=== PATIENT | male | born 2000 | race Caucasian/White ===

== ENCOUNTER 2020-12-21 22:13 | Emergency (ER) | payer OTHER, SELFPAY ==
[2020-12-21 22:20] VITALS: BP 129/83; PULSE 115; RESP 18; O2SAT 98
--- NOTE | 2020-12-21 22:51 | PC.NURSE ---
Security at bedside. Pt heard yelling/screaming in room and slamming things. Pt extremely rude to staff and inappropriate with care. Charge Nurse notified of situation. Security remains outside of room at this time.
--- NOTE | 2020-12-21 22:57 | PC.NURSE ---
PA at bedside for primary eval.
--- NOTE | 2020-12-21 23:00 | ED.EAR ---
HPI - Ear Problem General Chief complaint: Dental/Oral Stated complaint: dental pain Time Seen by Provider: 12/21/20 22:47 Source: patient Mode of arrival: ambulatory Limitations: no limitations History of Present Illness HPI Narrative: 20 y/o male presenting with left ear pain and left upper jaw pain that started today. He denies trauma. He denies hearing loss, tinnitus, or drainage. He denies dental pain, sore throat, difficulty eating or drinking. He is holding his left face in pain. Security to the room for patient throwing things and yelling at staff. Took redirection in order to complete interview and examination. MD Complaint: ear pain Location: left ear Duration: constant Severity: severe Relieving factors: nothing Exacerbating factors: palpation Discharge from ear: no Treatment prior to arrival: none Related Data Previous Rx's Medication Instructions Recorded amoxicillin 875 mg-potassium 1 tab PO BID #20 tab 12/21/20 clavulanate 125 mg tablet (Augmentin) ibuprofen 600 mg tablet 600 mg PO Q8H PRN #14 tab 12/21/20 Allergies Allergy/AdvReac Type Severity Reaction Status Date / Time No Known Allergies Allergy Verified 12/21/20 22:24 Review of Systems Constitutional: Constitutional: Denies chills, Denies fever(s) and Denies headache(s) Eyes: Eyes: Reports no additional eye complaints ENT: Reports Normal hearing present, Denies vertigo, Denies ear discharge, Reports otalgia, Denies headache(s), Denies mouth pain, Denies nasal congestion, Denies neck pain, Denies nose pain, Denies odynophagia, Denies sinus pressure, Denies sore throat, Denies throat swelling and Denies tongue swelling Cardiovascular: Cardiovascular: Denies chest pain Respiratory: Respiratory: Denies cough Gastrointestinal: Gastrointestinal: Denies odynophagia Musculoskeletal: Musculoskeletal: Denies neck pain Integumentary/Breasts: Skin/Breast: Denies rash Neurologic: Reports Normal hearing present, Denies vertigo and Denies headache(s) Allergic/Immunologic: Allergic/Immunologic: Denies throat swelling and Denies tongue swelling PMF Past Medical History Medical History (Updated 12/21/20 @ 23:01 by DIANE Robles) No known health problems Social History Social History Advance Directives: No Advance Directives Information Provided: Yes Physical Exam Vital Signs: Vital Signs: Last Vital Signs Pulse 115 H 12/21/20 22:20 Resp 18 12/21/20 22:20 BP 129/83 12/21/20 22:20 Pulse Ox 98 12/21/20 22:20 Body Mass Index 20.0 Appearance: Alert, agitated and uncooperative. Eyes: Pupils equal, round and reactive to light. ENT: Pharynx normal. No dental tenderness or gingival tenderness or fluctunace. Angle of the left mandible normal to palpation, no trismus. No mastoid tenderness or swelling. Left EAC normal, left TM with erythema, bulging and small area of dried blood on the TM without appreciable perforation. Neck: Normal inspection. Neck supple. Respiratory: No respiratory distress. Skin: Skin warm and dry. Normal skin color. Normal skin turgor. No rashes. Extremities: Atraumatic x4. Neuro: Non-focal, agitated, cursing and rude. Steady gait. Neuro: Cranial nerves: Yes Normal hearing present Course Course Course Narrative: 20 y/o male presenting with acute onset of left ear pain radiating to left upper mandible. Normal ROM without clicking or trismus. No evidence of trauma. Exam is consistent with AOM, will treat as such. Stable for discharge. Critical Care Time Critical Care Time Critical Care Time: No Discharge Plan Discharge Clinical Impression: Otitis media Qualifiers: Otitis media type: suppurative Chronicity: acute Laterality: left Recurrence: non-recurrent Spontaneous tympanic membrane rupture: without spontaneous rupture Qualified Code(s): H66.002 - Acute suppurative otitis media without spontaneous rupture of ear drum, left ear Patient Disposition: Home, Self-Care Instructions: Ear Infection (ED) Additional Instructions: If you develop new or worsening symptoms call 911 or come back to the ER for further evaluation. Prescriptions: New amoxicillin-pot clavulanate [Augmentin] 875-125 mg tablet 1 tab PO BID Qty: 20 RF: 0 ibuprofen 600 mg tablet 600 mg PO Q8H PRN (Reason: fever or pain) Qty: 14 RF: 0 Interventions: ED Discharge Assessment Last Done: 12/21/20 23:08 Discharge Date/Time: 12/21/20 23:08
== END 2020-12-21 23:08 | disposition home or self-care (01) ==
PROVIDERS: Emergency Provider Emergency Medicine; PCP Internal Medicine
DX: K08.89 Other specified disorders of teeth and supporting structures (principal); H92.02 Otalgia, left ear
CPT/HCPCS: 99283

== ENCOUNTER 2020-12-24 21:04 | Emergency (ER) | payer OTHER, SELFPAY ==
[2020-12-24 21:14] VITALS: BP 131/85; PULSE 89; RESP 18; TEMP 36.8; O2SAT 97; BMI 19.3
--- NOTE | 2020-12-24 21:42 | PC.NURSE ---
Patient grossly paranoid, minimally compliant with manager of change, BHN referral completed via smart-sheet, patient currently in his self dialoguing, vss, will continue to monitor.
[2020-12-24] MEDS: LORazepam 1 MG TABLET 2 MG PO (22:02)
[2020-12-24] MEDS: OLANZapine 5 MG TABLET PO (22:02)
[2020-12-24 22:16] LABS: COVID-19 Test Negative (Negative)
--- NOTE | 2020-12-24 23:04 | PC.NURSE ---
Patient's thought process is grossly paranoid, delusional, and tangential. At time get loud and disruptive, provider ordered Olanzapine 5 mg PO and Ativan 2 mg po, patient was suspicious but eventually end up taking it, N consult was completed and confirmed by Alida, patient will be evaluated in the morning, will continue to monitor.
--- NOTE | 2020-12-24 23:04 | ED.PSYCH ---
HPI - Psych General Chief Complaint: Psychiatric Symptoms Stated Complaint: crisis Time Seen by Provider: 12/24/20 21:49 Source: patient Mode of arrival: ambulatory History of Present Illness HPI Narrative: Patient is a 20-year-old male with no significant past medical history who presents with complaining of being homeless and feeling like people are out to get him . Patient has racing thoughts, difficult to follow his logic, very tangential, denies SI but states he has HI every day , and states that I must feel the same way to, because everyone feels like killing someone every day . His behavior is erratic, going from calm to anxious to stress all within just a minute or 2. Patient unable to answer questions coherently when asked if he has any visual or auditory hallucinations. Denies any physical complaints except for some chronic right hip pain which he states is not really bothering him right now. He does admit to being homeless but is unable to answer how long he has been homeless. He does state he is very thin because he does not eat much. Is unable to articulate whether that is because he does not have access to food or he does not believe he needs to eat or he is not hungry. Related Data Previous Rx's Medication Instructions Recorded amoxicillin 875 mg-potassium 1 tab PO BID #20 tab 12/21/20 clavulanate 125 mg tablet (Augmentin) ibuprofen 600 mg tablet 600 mg PO Q8H PRN #14 tab 12/21/20 Allergies Allergy/AdvReac Type Severity Reaction Status Date / Time No Known Allergies Allergy Verified 12/21/20 22:24 Review of Systems Review of Systems: Yes all other systems are reviewed and are negative PMFSH Past Medical History Medical History Anxiety Depression Social History Social History Advance Directives: No Advance Directives Information Provided: Yes Physical Exam Vital Signs: Vital Signs: Last Vital Signs Temp 98.1 F 12/24/20 23:51 Pulse 94 12/24/20 23:51 Resp 20 12/24/20 23:51 BP 132/88 12/24/20 23:51 Pulse Ox 100 12/24/20 23:51 Body Mass Index 19.3 Const: General: cooperative and comfortable Nutritional Appearance: underweight Orientation/consciousness: patient oriented x3 Limitations: no limitations HENMT: Head: Yes normal to inspection, Yes No palpable skull fracture present, Yes normocephalic and Yes atraumatic Eyes: General: appearance normal, both eyes and all related structures Neck: Neck: Yes normal visual inspection and Yes full ROM Resp: Effort & Inspection: normal respiratory effort and able to speak in complete sentences Skin: General skin exam: no rashes or lesions noted Neuro: General: patient oriented x3 Extrem: General: Yes normal to inspection Psych: Appearance: well kempt Speech and movement: Pressured speech present, Psychomotor agitation in speech present and Restless speech present Affect: Labile affect present Attitude: cooperative Thought process: Illogical thought process present, Tangential thought process present and Racing thoughts present Thought content: suicidality, Homicidality present, Paranoid delusions present and Hallucination(s) present (Unclear) Insight: Fair insight present (Psych) Judgement: Fair judgement present (Psych) Course Course Course Narrative: 20-year-old male with no significant past medical history presents with homelessness, incoherent thoughts, paranoid delusions, tangential thoughts as well as reduced eating and sleeping. High suspicion for new onset schizophrenia. BHN consult requested. The patient lorazepam and olanzapine for tonight. MDM - Psych Lab Data Labs: Lab Results 12/24/20 Range/Units 21:40 COVID-19 (PONCE) Negative (Negative) COVID-19 Clin Com See Note Discharge Plan Discharge Clinical Impression: Acute psychosis Prescriptions: No Action amoxicillin-pot clavulanate [Augmentin] 875-125 mg tablet 1 tab PO BID Qty: 20 RF: 0 ibuprofen 600 mg tablet 600 mg PO Q8H PRN (Reason: fever or pain) Qty: 14 RF: 0
[2020-12-24 23:51] VITALS: BP 132/88; PULSE 94; RESP 20; TEMP 36.7; O2SAT 100
--- NOTE | 2020-12-25 05:41 | PC.NURSE ---
Patient slept through the night, no distress observed/reported, responded well to Olanzapine 5 mg PO and Ativan 2 mg PO, patient is delusional paranoid, mother Valentina ( phone number [phone]) thinks it is poly-substance induced psychosis and per mother his sister is planning to file section 35 today, [facility] referral completed/confirmed by Alida/patient is waiting to be seen by N this morning, appetite good, elimination intact, refused to provide urine sample, VSS, will continue to monitor.
[2020-12-25 09:16] VITALS: RESP 17
--- NOTE | 2020-12-25 12:32 | MHC.CARE ---
CARE Team attempts to meet with pt in order to assess mental status. Pt is asleep in the behavioral health pod when CARE Team initiates assessment. Pt is difficult to rouse, and when he does wake, pt is irritable, confrontational with CARE Team and declining to answer questions. Pt emerges from pod room 2, and is confrontational and demanding with staff. No apparent signs of psychosis, however, CARE Team will continue to monitor. Pt states that he has not been eating or sleeping recently, and is angry due to being woken up and due to food choices available. CARE Team reaches out to [place] court, who verify that there is an active [address] warrant, that expires Dec 30, 2020. Plan is for [place] and [place] police to work together to coordinate picking up pt from the ED today and transferring to court. Pt is not made aware of the plan at this time. CARE Team communities with DIANE Vizcaino, regarding pt's level of agitation, and [facility] states that he will order Zyprexa. CARE Team communicates plan to MLP and Veronqiue Jung and CARE Team will provide updates as they become available.
--- NOTE | 2020-12-25 12:53 | PC.NURSE ---
Pt currently agitated, rude, agreeable to taking 2mg lorazepam at this time.
[2020-12-25] MEDS: LORazepam 1 MG TABLET 2 MG PO (12:56)
--- NOTE | 2020-12-25 13:15 | PC.NURSE ---
[employer]D to pod to arrest on [address] warrant.
== END 2020-12-25 13:15 ==
PROVIDERS: Physician Assistant; Emergency Provider Student in an Organized Health Care Education/Training Program; PCP Internal Medicine
DX: F23 Brief psychotic disorder (principal); Z20.822 Contact with and (suspected) exposure to COVID-19; F41.9 Anxiety disorder, unspecified; Z59.0 Homelessness
CPT/HCPCS: 36415; 87635; 99284; 99285